=== PATIENT | female | born 1945 | race Caucasian/White ===

== ENCOUNTER → 2018-03-04 | Day surgery (SDC) | payer MEDICARE, OTHER ==
[2018-03-01 13:08] LABS: BASOPHILS % 0.7 % (0.0-1.0); EOSINOPHILS # (AUTO) 0.2 (0.0-0.4); EOSINOPHILS % 3.9 % (0.0-6.0); HEMATOCRIT 36.5 % (34.2-44.1); HEMOGLOBIN 12.1 g/dL (12.0-16.0); LYMPHOCYTES # (AUTO) 1.7 (1.0-3.2); LYMPHOCYTES % 30.8 % (18.0-39.1); MEAN CORPUSCULAR HEMOGLOBIN 30.4 pg (28-32); MEAN CORPUSCULAR HGB CONC 33.2 g/dL (31-35); MEAN CORPUSCULAR VOLUME 91.7 fL (81-99); MONOCYTES # (AUTO) 0.6 (0.2-0.8); MONOCYTES % 11.7 % (4.4-11.3); NEUTROPHILS # (AUTO) 2.9 (2.1-6.9); NEUTROPHILS % 52.7 % (38.7-80.0); PLATELET COUNT 195 x10e3/uL (140-360); RED BLOOD COUNT 3.98 x10e6/uL (3.6-5.1); RED CELL DISTRIBUTION WIDTH 13.3 % (11.7-14.4)
--- NOTE | 2018-03-01 13:13 | Diagnostic Imaging Report ---
PROCEDURE: X-RAY CHEST, TWO VIEWS COMPARISON: None. INDICATIONS: PREOPERATIVE CHEST XRAY FOR SCHWAB'S NEUROMA FINDINGS: LUNGS: No consolidations or edema. PLEURA: No effusions or pneumothorax. HEART \T\ MEDIASTINUM: The heart is within normal size-limits. BONES \T\ SOFT TISSUES: No acute findings. [place] device overlies the right humeral head. CONCLUSION: No acute thoracic abnormality. Bhavik Butler D.O. Dictated by: Bhavik Butler D.O. on 03/01/2018 at 13:15 Electronically approved by: Bhavik Butler D.O. on 03/01/2018 at 13:15
[2018-03-01 13:24] LABS: ANION GAP 14.1 mmol/L (8-16); CALCIUM 9.8 mg/dL (8.4-10.2); CREATININE, SERUM 1.03 mg/dL (0.57-1.11); POTASSIUM 4.1 mmol/L (3.5-5.1)
[~2018-03-04] MED LIST: ACETAMINOPHEN 1000 MG/100 ML IV ONE; AMBIEN; BUPIVACAINE HCL 0.5% INJ 30 ML VIAL INJ ONE; CEFAZOLIN SOD 2 GM/D5W 50ML 50 ML IV ONE; CITRACAL; CYCLOBENZAPRINE10 MG PO; DESFLURANE 240 ML BTL INH ONE; DEXAMETHASONE SOD PHOS INJ 4 MG/ML VIAL ONE; FENTANYL CITRATE/PF 100MCG/2 ML INJ ONE; FISH OI; FUROSEMIDE20 MG PO; GABAPENTIN300 MG PO; HYDROCODON-ACE1 EAC9 PO; HYDROCORTISON28.4 G5; KETOROLAC TROMETHAMINE 30 MG/ML VIAL ONE; LEVOCETIRIZINE D5 MG PO; LIDOCAINE HCL 2% LOCAL INJ 5 ML SDV VIAL INJ ONE; LORSARTAN PO; MELOXICAM7.5 MG PO; MIDAZOLAM HCL 2 MG/2 ML VIAL ONE; MULTI-VITAMIN1 EACH PO; NASONEX; NEOSTIGMINE 1 MG/ML 10ML VIAL ONE; ONDANSETRON HCL INJ 2 MG/ML VIAL ONE; OSTEO BI-FLEX1 EAC2 PO; OYSTER SHELL 51 EACH PO; PLAVIX PO; POTASSIUM CHLO10 ME1 PO; PROPOFOL IV EMULSION 10 MG/ML 20 ML VIAL ONE; PROTONIX PO; SALINE SPRAY; SERTRALINE HCL50 MG PO; SIMVA; SIMVASTATIN20 MG PO; TRAZADONE; VALIUM; VOLTAREN; VOLTAREN GEL; WELLBUTRIN; Z FOSAMAX PO; Z TRAMADOL HCL; ZOLOFT; [UNRECOGNIZED DRUG - OTHER]; [UNRECOGNIZED DRUG - REMARK]
--- OUTSIDE RECORDS SUMMARY | 2018-03-04 06:44 | XMS REPORT ---
Author Author [facility] Address Unknown Phone Unavailable Care Team Providers Care Magnetic Resonance Imaging Coordinator Name Role Phone DENISE RIVERO Unavailable Unavailable Problems This patient has no known problems. Allergies, Adverse Reactions, Alerts This patient has no known allergies or adverse reactions. Medications This patient has no known medications. Results Test Description Test Time Test Comments Text Results Atomic Results Result Comments CHEST 2 VIEWS [place] [address] Patient Name: RADHA BROWN MR #: [id number] : 1945 Age/Sex: 72/F Req #: [id number] Adm Physician: Ordered by: DENISE RVIERO DPM Report #: [id number] Location: OR Room/Bed: Procedure: 0424- [id number] DX/CHEST 2 VIEWS Exam Date: Exam Time: REPORT STATUS: Signed PROCEDURE: X-RAY CHEST, TWO VIEWS COMPARISON: None. INDICATIONS: PREOPERATIVE CHEST XRAY FOR SCHWAB'S NEUROMA FINDINGS: LUNGS: No consolidations or edema. PLEURA: No effusions or pneumothorax. HEART T MEDIASTINUM: The heart is within normal size- limits. BONES T SOFT TISSUES: No acute findings. [place] device overlies the right humeral head. CONCLUSION: No acute thoracic abnormality. Katlin Butler D.O. Dictated by: Katlin Butler D.O. on 03/01/2018 at 13:15 Electronically approved by: Katlin Butler D.O. on 03/01/2018 at 13:15 Dictated By: KATLIN BUTLER DO 14 Transcribed By: KALEB on 03/01/181314 COPY TO: DENISE RIVERO DPM
--- NOTE | 2018-03-04 14:04 | Operative Report ---
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 TITLE OF OPERATION: Excision of neuroma, 3rd intermetatarsal space of the right foot. ANESTHESIA: General endotracheal. HEMOSTASIS: A right thigh tourniquet at 350 mmHg. PROCEDURE IN DETAIL: The patient was taken to the operating room in a mildly sedated state and placed upon the operating table in the supine position. Following induction of a general anesthetic, the right lower extremity was elevated to 60 degrees to exsanguinate before inflating the pneumatic thigh tourniquet to 350 mmHg to create hemostasis. The lower extremity was placed upon the operating table prior to performing the following procedure: Procedure #1: Excision of neuroma, 3rd intermetatarsal space of the right foot. Incision was made on the dorsal aspect of the 3rd intermetatarsal space of the right foot. Incision was deepened via sharp and blunt dissection down to the level of the dorsal capsular structure. Care was taken to identify and retract all vital structures encountered. The heads of the 3rd and 4th metatarsals were identified, and the neuroma structure beneath the transverse intermetatarsal ligament was identified, noted to be enlarged and resected utilizing a combination of sharp and blunt dissection. The area was irrigated with copious amounts of sterile saline solution. Deep closure was 3-0 Vicryl. Subcutaneous closure was 4-0 Vicryl. Skin closure was 4-0 nylon. The areas of surgery were then blocked with 0.5 Marcaine and Decadron [place]. Human tissue allograft to bury the 3rd digital stump into the surrounding muscle. The area was then dressed with the appropriate mildly compressive dressings. The patient left the operating room with vital signs stable and in apparent satisfactory condition, having tolerated the anesthetic and the procedure very well. Job#: [id number]
== END | disposition home or self-care (01) ==
LOC: OR 06:41
PROVIDERS: ATTEND Podiatrist Foot Surgery
DX: G57.61 Lesion of plantar nerve, right lower limb (principal); I10 Essential (primary) hypertension; K21.9 Gastro-esophageal reflux disease without esophagitis; M79.7 Fibromyalgia; Z01.810 Encounter for preprocedural cardiovascular examination; Z01.812 Encounter for preprocedural laboratory examination; Z01.818 Encounter for other preprocedural examination; Z86.73 Personal history of transient ischemic attack (TIA), and cerebral infarction without residual deficits; Z79.02 Long term (current) use of antithrombotics/antiplatelets; Z88.2 Allergy status to sulfonamides
CPT/HCPCS: 28080; C5275; 36415; 71046; 80048; 85025; 88304; 93005; J1100; J1885; J2001; J2250; J2405; J2710

== ENCOUNTER → 2019-06-09 | Day surgery (SDC) | payer MEDICARE, OTHER ==
[2019-06-07 13:33] LABS: BASOPHILS # (AUTO) 0.1 (0.0-0.1); BASOPHILS % 1.3 % (0.0-1.0); EOSINOPHILS # (AUTO) 0.2 (0.0-0.4); EOSINOPHILS % 4.2 % (0.0-6.0); HEMOGLOBIN 11.9 g/dL (12.0-16.0); LYMPHOCYTES # (AUTO) 1.7 (1.0-3.2); LYMPHOCYTES % 31.8 % (18.0-39.1); MEAN CORPUSCULAR HEMOGLOBIN 29.9 pg (28-32); MEAN CORPUSCULAR HGB CONC 32.2 g/dL (31-35); MONOCYTES # (AUTO) 0.7 (0.2-0.8); MONOCYTES % 12.8 % (4.4-11.3); NEUTROPHILS # (AUTO) 2.7 (2.1-6.9); NEUTROPHILS % 49.7 % (38.7-80.0); PLATELET COUNT 200 x10e3/uL (140-360); RED BLOOD COUNT 3.98 x10e6/uL (3.6-5.1); RED CELL DISTRIBUTION WIDTH 12.9 % (11.7-14.4)
[2019-06-07 13:54] LABS: BLOOD UREA NITROGEN 15 mg/dL (7-26); BUN/CREATININE RATIO 17 (6-25); CALCIUM 9.8 mg/dL (8.4-10.2); CARBON DIOXIDE 30 mmol/L (22-29); CHLORIDE 103 mmol/L (98-107); CREATININE, SERUM 0.87 mg/dL (0.57-1.11); EST GLOMERULAR FILTRATION RATE > 60 ML/MIN (60-); GLUCOSE 95 mg/dL (74-118); SODIUM 141 mmol/L (136-145)
--- NOTE | 2019-06-07 13:57 | Diagnostic Imaging Report ---
EXAMINATION: CHEST 2 VIEWS INDICATION: Pre-operative COMPARISON: None FINDINGS: LINES/TUBES:None LUNGS:The lungs are well-inflated. No focal consolidation or pulmonary edema. PLEURA:No pleural effusion or pneumothorax. MEDIASTINUM:The cardiomediastinal silhouette appears normal in size and shape. Atherosclerotic calcifications of the thoracic aorta. BONES/SOFT TISSUES:No acute osseous injury. ABDOMEN:No free air under the diaphragm. IMPRESSION: No focal pneumonia or pulmonary edema. Signed by: Ayanna Hugo MD on 06/07/2019 1:53 PM
[~2019-06-09] MED LIST changes: -ACETAMINOPHEN 1000 MG/100 ML IV ONE; +CEFAZOLIN SOD 1 GM/NS 50ML 100 ML IV ONE; -CEFAZOLIN SOD 2 GM/D5W 50ML 50 ML IV ONE; -DESFLURANE 240 ML BTL INH ONE; +GLYCOPYRROLATE INJ 1MG/ 5 ML SYR ONE; -KETOROLAC TROMETHAMINE 30 MG/ML VIAL ONE; +LABETALOL HCL 5 MG/ML 20ML VIAL ONE; +MUPIROCIN 2% OINT 22 GM TUBE ONE; -NEOSTIGMINE 1 MG/ML 10ML VIAL ONE; -ONDANSETRON HCL INJ 2 MG/ML VIAL ONE; +ONDANSETRON HCL INJ 2MG/ML 2ML 2 MG/ML VIAL ONE; +PHENYLEPHRINE HCL 1% 10 MG/ML VIAL ONE; +SEVOFLURANE INHAL SOLN 250 ML PEN BTL ONE
[2019-06-09 09:15] VITALS: BP 152/76
--- NOTE | 2019-06-09 14:12 | Operative Report ---
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 TITLE OF THE OPERATION: A neurolysis of the 2nd intermetatarsal space with possible excision of neuroma 2nd intermetatarsal space of right foot with microscopic evaluation. ANESTHESIA: General endotracheal. HEMOSTASIS: A right thigh tourniquet at 350 mmHg. PROCEDURE IN DETAIL: The patient was taken to the operating room in a mildly sedated state, placed on the operating table in supine position. Following induction of general anesthetic, the right lower extremity was elevated to 60 degrees to exsanguinate before inflating the pneumatic thigh tourniquet to 350 mmHg to create good hemostasis. Right lower extremity was placed on the operating table prior to performing the following procedure: Neurolysis of the 2nd intermetatarsal space nerve of the right foot. An approximate 4 cm dorsal linear incision made along the dorsal aspect of the 2nd intermetatarsal space of the right foot. Incision deepened via sharp and blunt dissection below the dorsal capsular structure. Care was taken to identify, retract all vital structures encountered. Transverse intermetatarsal ligament was identified and sectioned. A significant amount of inflammatory fluid and pressure from the 2nd intermetatarsal space was released. The nerve itself was identified, noted to be mildly hypertrophic, but primarily incarcerated with the scar tissue surrounding. Utilizing microscopic evaluation, the nerve was freed from all surrounding tissues and extending proximally into the 2nd intermetatarsal space and distally to the 2nd and 3rd digits. This area was then irrigated with copious amounts of sterile saline solution. Deep closure was 3-0 Vicryl. Human tissue allograft was used to facilitate a soft tissue healing and regeneration of healthy nerve in that area. The skin closure was 4-0 nylon. No drain was used. The appropriate mildly compressive dressings were applied and the patient left the operating room, vital signs are stable in apparent satisfactory condition, having tolerated both the anesthetic and procedure very well. RUDDY Jeffers/MODL /[id number]
== END | disposition home or self-care (01) ==
LOC: OR 05:27
PROVIDERS: ATTEND Podiatrist Foot Surgery
DX: G57.61 Lesion of plantar nerve, right lower limb (principal); I10 Essential (primary) hypertension; E78.5 Hyperlipidemia, unspecified; R07.9 Chest pain, unspecified; K21.9 Gastro-esophageal reflux disease without esophagitis; Z88.2 Allergy status to sulfonamides; Z01.812 Encounter for preprocedural laboratory examination; Z01.818 Encounter for other preprocedural examination; Z79.02 Long term (current) use of antithrombotics/antiplatelets; Z86.73 Personal history of transient ischemic attack (TIA), and cerebral infarction without residual deficits
CPT/HCPCS: 28080; 36415; 71046; 80048; 85025; J0690; J1100; J2001; J2250; J2370; J2405; J2704; J3010; J3490 ×2; Q4100